=== PATIENT | female | born 1990 | race Caucasian/White ===

== ENCOUNTER 2017-12-08 20:49 | Emergency (ER) | payer BC ==
--- NOTE | 2017-12-08 21:57 | EDM.PDOC ---
ED HPI GENERAL MEDICAL PROBLEM - General Chief Complaint: Bite:Animal, Insect Stated Complaint: INSECT BITE LT ANKLE Time Seen by Provider: 12/08/17 21:53 Source of Information: Reports: Patient History Limitations: Reports: No Limitations - History of Present Illness INITIAL COMMENTS - FREE TEXT/NARRATIVE: HISTORY AND PHYSICAL: []27-year-old female presenting with a insect bite to her left lower leg/ankle History of Present Illness: []She reports multiple allergies. She is 31 weeks Review of Systems: As per history of present illness and below otherwise all systems reviewed and negative. Past medical history: As per history of present illness and as reviewed below otherwise noncontributory. Surgical history: As per history of present illness and as reviewed below otherwise noncontributory. Social history: No reported history of drug or alcohol abuse. Family history: As per history of present illness and as reviewed below otherwise noncontributory. Physical exam: Oriented female answering questions appropriately in full sentences without any shortness of breath she is nontoxic in appearance HEENT: Atraumatic, normocehpalic, pupils reactive, negative for conjunctival pallor or scleral icterus, mucous membranes moist, throat clear, neck supple, nontender, trachea midline. Lungs: Clear to auscultation, breath sounds equal bilaterally, chest non tender. Heart: S1S2, regular, negative for clicks, rubs, or JVD. Abdomen: Soft, nondistended, nontender. Negative for masses or hepatossplenmegaly. Negative for costovertebral tenderness. Pelvis: Stable nontender. Genitourinary: Deferred. Rectal: Deferred Extremities: Atraumatic, negative for cords or calf pain. Mild edema noted to the left lateral ankle erythema noted itching present Neurovascular unremarkable. Neuro: Awake, alert, oriented. Cranial nerves II through XII unremarkable. Cerebellum unremarkable. Motor and sensory unremarkable throughout. Exam nonfocal. Diagnostics: [] Therapeutics: [] Impression: []Insect bite Plan: []Discharged home Zyrtec [id number] Prednisone 20 mg daily times the next 3 days Over The counter cortisone cream when necessary Definitive disposition and diagnosis as appropriate pending reevaluation and review of above. 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 ED EXAM, ANIMAL BITE - Physical Exam Exam: See Below (see dictation) Course - Vital Signs Last Recorded V/S: Last Vital Signs Temp 36.6 C 12/08/17 20:49 Pulse 93 12/08/17 20:49 Resp 18 12/08/17 20:49 BP 110/64 12/08/17 20:49 Pulse Ox 97 12/08/17 20:49 Departure - Departure Time of Disposition: 21:55 Disposition: Home, Self-Care 01 Condition: Good Clinical Impression: Insect bite Qualifiers: Encounter type: initial encounter Qualified Code(s): W57.XXXA - Bitten or stung by nonvenomous insect and other nonvenomous arthropods, initial encounter - Discharge Information Instructions: Insect Bite, Adult, [id number], Preventing Mosquito-Borne Illnesses Referrals: Ellie Sheth MD [Primary Care Provider] - Additional Instructions: The following information is given to patients seen in the emergency department who are being discharged to home. This information is to outline your options for follow-up care. We provide all patients seen in our emergency department with a follow-up referral. The need for follow-up, as well as the timing and circumstances, are variable depending upon the specifics of your emergency department visit. If you don't have a primary care physician on staff, we will provide you with a referral. We always advise you to contact your personal physician following an emergency department visit to inform them of the circumstance of the visit and for follow-up with them and/or the need for any referrals to a consulting specialist. The emergency department will also refer you to a specialist when appropriate. This referral assures that you have the opportunity for followup care with a specialist. All of these measure are taken in an effort to provide you with optimal care, which includes your followup. Under all circumstances we always encourage you to contact your private physician who remains a resource for coordinating your care. When calling for followup care, please make the office aware that this follow-up is from your recent emergency room visit. If for any reason you are refused follow-up, please contact the [facility] emergency department at and asked to speak to the emergency department charge nurse. You have a reaction to mosquito bite Prednisone 20 mg daily for 3 days Zyrtec [id number] allergy medicine daily Follow-up with your CORPORATE FITNESS PROGRAM COORDINATOR
[2017-12-08 22:20] VITALS: BP 106/68
== END 2017-12-08 22:15 | disposition home or self-care (01) ==
LOC: MW.ED 20:49
DX: O9A.213 Injury, poisoning and certain other consequences of external causes complicating pregnancy, third trimester (principal); S80.862A Insect bite (nonvenomous), left lower leg, initial encounter; W57.XXXA Bitten or stung by nonvenomous insect and other nonvenomous arthropods, initial encounter; Z3A.31 31 weeks gestation of pregnancy
CPT/HCPCS: 99281

== ENCOUNTER 2018-02-07 01:54 | Inpatient (IN) | payer BC ==
[2018-02-07] MEDS ORDERED: Water For Irrigation,Sterile 1,000 ML Container IRR PRN (02:20)
[2018-02-07] MEDS ORDERED: Terbutaline 1 MG/ML SDV SUBCUT PRN (02:20)
[2018-02-07] MEDS ORDERED: Sodium Chloride 0.9% 2.5 ML Syringe FLUSH PRN (02:20)
[2018-02-07] MEDS ORDERED: Misoprostol 200 MCG Tab PO PRN (02:20)
[2018-02-07] MEDS ORDERED: Nalbuphine 10 MG/1 ML Vial IVPUSH PRN (02:20)
[2018-02-07] MEDS ORDERED: Tranexamic Acid 1,000 MG in Sodium Chloride 0.9% 100 ML IV PRN (02:20)
[2018-02-07] MEDS ORDERED: Methylergonovine 0.2 MG/1 ML Amp IM PRN ×2 (02:20→08:56)
[2018-02-07] MEDS ORDERED: Lidocaine 1% 50 ML MDV INJECT PRN (02:20)
[2018-02-07] MEDS ORDERED: Butorphanol 1 MG/ML SDV IVPUSH PRN (02:20)
[2018-02-07] MEDS ORDERED: Carboprost Tromethamine 250 MCG/1 ML Amp IM PRN (02:20)
[2018-02-07] MEDS ORDERED: Misoprostol 25 MCG (1/4 of 100 MCG) Tab VAG PRN ×2 (02:20)
[2018-02-07] MEDS ORDERED: Sodium Chloride 0.9% 10 ML Syringe FLUSH PRN (02:20)
[2018-02-07] MEDS ORDERED: Oxytocin/0.9 % Sodium Chloride 30 UNIT/500 ML BAG IV SCH ×2 (02:30)
[2018-02-07] MEDS: Lactated Ringers 1,000 ML IV SCH ×2 (02:55→03:46)
[2018-02-07] MEDS ORDERED: Witch Hazel Medicated Pads 40/Jar TOP PRN (08:56)
[2018-02-07] MEDS ORDERED: Ibuprofen 800 MG Tab PO PRN (08:56)
[2018-02-07] MEDS ORDERED: Docusate Sodium 100 MG Cap PO PRN (08:56)
[2018-02-07] MEDS ORDERED: Ibuprofen 400 MG Tab PO PRN (08:56)
[2018-02-07] MEDS ORDERED: Bisacodyl 10 MG Supp RECTAL PRN (08:56)
[2018-02-07] MEDS ORDERED: oxyCODONE 5 MG Tab PO PRN (08:56)
[2018-02-07] MEDS ORDERED: Lanolin 100% Cream 7 GM Tube TOP PRN (08:56)
[2018-02-07] MEDS ORDERED: Acetaminophen 500 MG Tab PO PRN (08:56)
--- NOTE | 2018-02-07 08:56 | PCM.DEL ---
L & D Note - General Info Date of Service: 02/07/18 Mother's Due Date: 02/06/18 - Delivery Note Labor: Augmented by Oxytocin Delivery Outcome: Livebirth Infant Delivery Method: Spontaneous Vaginal Delivery-Single Presentation: Right Occiput Anterior (MAGGY) Nuchal Cord: None Anesthesia Type: None Episiotomy Type: None Laceration: None Placenta: Intact, Spontaneous Cord: 3 Vessels Estimated Blood Loss: 200 Resuscitation Needed: No Score 1 min: 9 Score 5 min: 9 Second Stage Interventions: Reports: Pushing Involuntarily Delivery Comments (Free Text/Narrative):: Scheduled for induction today, but presented at 3 am with SROM not in active labor, pitocin augmentation initiated. - General Info Date of Service: 02/07/18 - Patient Data Weight - Most Recent: 109.769 kg I&O - Last 24 Hours: Intake & Output 02/06/18 02/07/18 02/07/18 22:59 06:59 14:59 Intake Total 1000 Balance 1000 Lab Results Last 24 Hours: Laboratory Results - last 24 hr 02/07/18 02/07/18 Range/Units 02:40 02:40 WBC 10.18 (4.0-11.0) K/uL RBC 3.82 L (4.30-5.90) M/uL Hgb 11.3 L (12.0-16.0) g/dL Hct 34.3 L (36.0-46.0) % MCV 89.8 (80.0-98.0) fL MCH 29.6 (27.0-32.0) pg MCHC 32.9 (31.0-37.0) g/dL RDW Std Deviation 46.2 (28.0-62.0) fl RDW Coeff of Shanique 14 (11.0-15.0) % Plt Count 255 (150-400) K/uL MPV 9.40 (7.40-12.00) fL Nucleated RBC % 0.0 /100WBC Nucleated RBCs # 0 K/uL Blood Type A POSITIVE Antibody Screen NEGATIVE Med Orders - Current: Current Medications Butorphanol Tartrate (Stadol) 1 mg IVPUSH Q1H PRN PRN Reason: Pain Carboprost Tromethamine (Hemabate Ds) 250 mcg IM ASDIRECTED PRN PRN Reason: Post Hemorrhage Lactated Ringer's (Ringers, Lactated) 1,000 mls @ 150 mls/hr IV ASDIRECTED KAREN Last Admin: 02/07/18 03:46 Dose: 100 mls/hr Oxytocin/Sodium Chloride (Oxytocin 30 Unit/500 Ml-Ns) 30 unit in 500 mls @ 999 mls/hr IV TITRATE KAREN Oxytocin/Sodium Chloride (Oxytocin 30 Unit/500 Ml-Ns) 30 unit in 500 mls @ 2 mls/hr IV TITRATE KAREN; Protocol Last Titration: 02/07/18 04:10 Dose: 6 munits/min, 6 mls/hr Tranexamic Acid 1,000 mg/ (Sodium Chloride) 110 mls @ 660 mls/hr IV ONETIME PRN PRN Reason: Bleeding Lidocaine HCl (Xylocaine 1%) 50 ml INJECT ONETIME PRN PRN Reason: Laceration repair Methylergonovine Maleate (Methergine) 0.2 mg IM ASDIRECTED PRN PRN Reason: Post Hemorrhage Misoprostol (Cytotec) 200 mcg PO ONETIME PRN PRN Reason: Post Hemorrhage Misoprostol (Cytotec) 25 mcg VAG ONETIME PRN PRN Reason: Cervical Ripening Misoprostol (Cytotec) 25 mcg VAG Q4H PRN PRN Reason: Cervical Ripening Nalbuphine HCl (Nubain) 10 mg IVPUSH Q1H PRN PRN Reason: Pain (severe 7-10) Last Admin: 02/07/18 05:06 Dose: 10 mg Sodium Chloride (Saline Flush) 10 ml FLUSH ASDIRECTED PRN PRN Reason: Keep Vein Open Sodium Chloride (Saline Flush) 2.5 ml FLUSH ASDIRECTED PRN PRN Reason: Keep Vein Open Sterile Water (Sterile Water For Irrigation) 1,000 ml IRR ASDIRECTED PRN PRN Reason: delivery Terbutaline Sulfate (Brethine) 0.25 mg SUBCUT ASDIRECTED PRN PRN Reason: Tacysystole - Problem List & Annotations (1) Vaginal delivery SNOMED Code(s): 326166889 Code(s): O80 - ENCOUNTER FOR FULL-TERM UNCOMPLICATED DELIVERY Status: Acute Current Visit: No - Problem List Review Problem List Initiated/Reviewed/Updated: Yes
[2018-02-07] MEDS ORDERED: Prenatal Multivitamin and Multimineral with Iron Tab PO SCH (09:00)
[2018-02-07] MEDS ORDERED: Ranitidine 15 MG/ML Syrup 10 ML UD Cup PO SCH (09:00)
--- NOTE | 2018-02-07 15:47 | OR ---
SURGEON: Marjan Vidal M.D. DATE OF PROCEDURE: 02/07/2018 PREOPERATIVE DIAGNOSES: 1. 40 and 1/7 week intrauterine . 2. Spontaneous rupture of membranes with augmentation of labor. POSTOPERATIVE DIAGNOSES: 1. 40 and 1/7 week intrauterine . 2. Spontaneous rupture of membranes with augmentation of labor. PROCEDURES: Pitocin augmentation of labor, term spontaneous vaginal delivery. ANESTHESIA: None. ESTIMATED BLOOD LOSS: Less than 200 mL. FINDINGS: Live born male, scores 9 and 9, weighing 3770 g. Placenta spontaneous, Schultze intact with 3 vessels, perineum intact. BRIEF HISTORY: This is a 27-year-old female, she is G4, P3. She presented at approximately 2:00 a.m. with spontaneous rupture of membranes. She was scheduled for induction at 5:00 a.m., and therefore was started on Pitocin, and had category 1 heart tones and she progressed to complete by 8:00 a.m. DESCRIPTION OF PROCEDURE: With the patient in dorsal lithotomy position, the patient pushed over one contraction to 5+ station at which time, the head was delivered spontaneously and atraumatically over the perineum with support with subsequent delivery of the 's shoulders and body without any difficulty. The was bulb suctioned by nose and mouth. The cord was clamped x2 and cut, and the infant was handed to the mother in the presence of the nurse attending delivery. The was a liveborn male, scores 9 and 9, weighing 3770 g. Cord blood was collected for cord ABGs as well as routine cord blood sampling. Pitocin was initiated after delivery of the infant to assist with delivery of the placenta, which was delivered spontaneously. Schultze intact with 3 vessels. Upon inspection of the pelvis and perineum, there were no periurethral, vaginal sidewall, cervical, rectal, or perineal lacerations. EBL was less than 200 mL. There were no known complications. Mother and baby are in LDRP in good condition. NAOMY / NAMITA /[id number]
[2018-02-07] MEDS: Acetaminophen 500 MG Tab PO PRN (17:00)
[2018-02-07] MEDS: Loratadine 10 MG Tab PO SCH ×2 (21:44→21:47)
[2018-02-08] MEDS: Acetaminophen 500 MG Tab PO PRN (00:42)
[2018-02-08 08:08] VITALS: BP 125/69
--- NOTE | 2018-02-08 11:14 | PCM.PNPP ---
- General Info Date of Service: 02/08/18 Functional Status: Reports: Pain Controlled, Tolerating Diet, Ambulating, Urinating - Review of Systems General: Denies: Fever, Chills HEENT: Denies: Headaches Pulmonary: Denies: Shortness of Breath, Pleuritic Chest Pain Cardiovascular: Denies: Chest Pain, Palpitations Gastrointestinal: Denies: Abdominal Pain Genitourinary: Denies: Dysuria, Incontinence - General Info Date of Service: 02/08/18 - Patient Data Vital Signs - Most Recent: Last Vital Signs Temp 36.8 C 02/08/18 07:40 Pulse 88 02/08/18 07:40 Resp 16 02/08/18 07:40 BP 125/69 02/08/18 07:40 Pulse Ox 96 02/08/18 07:40 Weight - Most Recent: 242 lb Lab Results - Last 24 Hours: Laboratory Results - last 24 hr 02/08/18 Range/Units 05:45 Hgb 11.1 L (12.0-16.0) g/dL Hct 33.6 L (36.0-46.0) % Med Orders - Current: Current Medications Acetaminophen (Tylenol Extra Strength) 500 mg PO Q4H PRN PRN Reason: Pain Last Admin: 02/08/18 00:42 Dose: 500 mg Acetaminophen (Tylenol Extra Strength) 1,000 mg PO Q4H PRN PRN Reason: Pain Bisacodyl (Dulcolax) 10 mg RECTAL ONETIME PRN PRN Reason: Constipation Docusate Sodium (Colace) 100 mg PO BID PRN PRN Reason: Constipation Emollient Ointment (Lansinoh Hpa) 0 gm TOP ASDIRECTED PRN PRN Reason: Sore Nipples Ibuprofen (Motrin) 400 mg PO Q4H PRN PRN Reason: Pain Ibuprofen (Motrin) 800 mg PO Q6H PRN PRN Reason: Pain Loratadine (Claritin) 10 mg PO BID [facility] Last Admin: 02/07/18 21:47 Dose: Not Given Methylergonovine Maleate (Methergine) 0.2 mg IM ONETIME PRN PRN Reason: Excessive Vaginal Bleeding Oxycodone HCl (Oxycodone) 5 mg PO Q2H PRN PRN Reason: Pain Prenat Multivit/Kinney/Iron/Folic Ac ( Mtr) 1 each PO DAILY [facility] Last Admin: 02/07/18 21:45 Dose: Not Given Ranitidine HCl (Zantac) 150 mg PO DAILY [facility] Last Admin: 02/07/18 21:45 Dose: Not Given Елена Meyerel (Tucks) 1 pad TOP ASDIRECTED PRN PRN Reason: comfort care Discontinued Medications Butorphanol Tartrate (Stadol) 1 mg IVPUSH Q1H PRN PRN Reason: Pain Carboprost Tromethamine (Hemabate Ds) 250 mcg IM ASDIRECTED PRN PRN Reason: Post Hemorrhage Lactated Ringer's (Ringers, Lactated) 1,000 mls @ 150 mls/hr IV ASDIRECTED KAREN Last Admin: 02/07/18 03:46 Dose: 100 mls/hr Oxytocin/Sodium Chloride (Oxytocin 30 Unit/500 Ml-Ns) 30 unit in 500 mls @ 999 mls/hr IV TITRATE KAREN Oxytocin/Sodium Chloride (Oxytocin 30 Unit/500 Ml-Ns) 30 unit in 500 mls @ 2 mls/hr IV TITRATE [facility]; Protocol Last Titration: 02/07/18 08:11 Dose: 500 munits/min, 500 mls/hr Tranexamic Acid 1,000 mg/ (Sodium Chloride) 110 mls @ 660 mls/hr IV ONETIME PRN PRN Reason: Bleeding Lidocaine HCl (Xylocaine 1%) 50 ml INJECT ONETIME PRN PRN Reason: Laceration repair Methylergonovine Maleate (Methergine) 0.2 mg IM ASDIRECTED PRN PRN Reason: Post Hemorrhage Misoprostol (Cytotec) 200 mcg PO ONETIME PRN PRN Reason: Post Hemorrhage Misoprostol (Cytotec) 25 mcg VAG ONETIME PRN PRN Reason: Cervical Ripening Misoprostol (Cytotec) 25 mcg VAG Q4H PRN PRN Reason: Cervical Ripening Nalbuphine HCl (Nubain) 10 mg IVPUSH Q1H PRN PRN Reason: Pain (severe 7-10) Last Admin: 02/07/18 05:06 Dose: 10 mg Sodium Chloride (Saline Flush) 10 ml FLUSH ASDIRECTED PRN PRN Reason: Keep Vein Open Sodium Chloride (Saline Flush) 2.5 ml FLUSH ASDIRECTED PRN PRN Reason: Keep Vein Open Sterile Water (Sterile Water For Irrigation) 1,000 ml IRR ASDIRECTED PRN PRN Reason: delivery Terbutaline Sulfate (Brethine) 0.25 mg SUBCUT ASDIRECTED PRN PRN Reason: Tacysystole - Interaction Disposition, : [place] in Room with Family Infant Interaction: Holding Feeding: Breastfed Infant; Nursed Well, Continues to Breastfeed Support Person: , Mother - Recovery Exam Fundal Tone: Firm Fundal Level: At Umbilicus Fundal Placement: Midline Lochia Amount: Small Lochia Color: Rubra/Red Perineum Description: Intact, Minimal Bruising/Swelling Episiotomy/Laceration: None Bladder Status: Nonpalpable Urinary Elimination: Voided - Exam General: Alert, Oriented Neck: Supple Lungs: Clear to Auscultation, Normal Respiratory Effort Cardiovascular: Regular Rate, Regular Rhythm GI/Abdominal Exam: Soft, Non-Tender Extremities: Non-Tender, Pedal Edema Psy/Mental Status: Alert, Normal Affect, Normal Mood - Problem List & Annotations (1) Vaginal delivery SNOMED Code(s): 309300143 Code(s): O80 - ENCOUNTER FOR FULL-TERM UNCOMPLICATED DELIVERY Status: Acute Current Visit: No - Problem List Review Problem List Initiated/Reviewed/Updated: Yes - Assessment Assessment:: PPD31, s/p , stable and afebrile - Plan Plan:: Discharge instructions reviewed Bleeding and infection precautions reviewed Nothing in the vagina for 6 weeks Continue PNV May use OTC pain meds PRN S/S of blues vs depression reviewed, stressed to call with any concerns Follow up in 6 weeks at [facility]
== END 2018-02-08 12:33 | disposition home or self-care (01) | DRG 560 ==
LOC: MW.OBCHECK 01:54 → MW.OB 01:57 → MW.OBCHECK 02:21 → OBSVTOIN 08:09
PROVIDERS: ADMIT Obstetrics & Gynecology; ATTEND Obstetrics & Gynecology
PROC: 10E0XZZ Delivery of Products of Conception, External Approach (ICD-10-PCS; principal; 2018-02-07)
PROC: 3E033VJ Introduction of Other Hormone into Peripheral Vein, Percutaneous Approach (ICD-10-PCS; 2018-02-07)
DX: O42.02 Full-term premature rupture of membranes, onset of labor within 24 hours of rupture (principal); Z3A.40 40 weeks gestation of pregnancy; Z37.0 Single live birth
CPT/HCPCS: 36415; 59025; 59409; 82803; 85014; 85018; 85027; 86850; 86900; 86901; A9270-GY; J2300; J2590; J7120

== ENCOUNTER 2020-04-06 07:14 | Inpatient (IN) | payer BC ==
[2020-04-06] MEDS ORDERED: Water For Irrigation,Sterile 1,000 ML Container IRR PRN (19:45)
[2020-04-06] MEDS ORDERED: Lactated Ringers 1,000 ML IV SCH (19:45)
[2020-04-06] MEDS ORDERED: Lidocaine 1% 50 ML MDV INJECT PRN (19:45)
[2020-04-06] MEDS ORDERED: Nalbuphine 10 MG/1 ML Vial IVPUSH PRN (19:45)
[2020-04-06] MEDS ORDERED: Misoprostol 25 MCG (1/4 of 100 MCG) Tab VAG PRN ×2 (19:45)
[2020-04-06] MEDS ORDERED: Methylergonovine 0.2 MG/1 ML Amp IM PRN (19:45)
[2020-04-06] MEDS ORDERED: Carboprost Tromethamine 250 MCG/1 ML Amp IM PRN (19:45)
[2020-04-06] MEDS ORDERED: Terbutaline 1 MG/ML SDV SUBCUT PRN (19:45)
[2020-04-06] MEDS ORDERED: Tranexamic Acid 1,000 MG in Sodium Chloride 0.9% 100 ML IV PRN (19:45)
[2020-04-06] MEDS ORDERED: Sodium Chloride 0.9% 10 ML Syringe FLUSH PRN (19:45)
[2020-04-06] MEDS ORDERED: Misoprostol 200 MCG Tab PO PRN (19:45)
[2020-04-06] MEDS ORDERED: Sodium Chloride 0.9% 2.5 ML Syringe FLUSH PRN (19:45)
[2020-04-06] MEDS ORDERED: Sodium Chloride 0.9% 10 ML SDV IV PRN (19:45)
[2020-04-06] MEDS ORDERED: Butorphanol 1 MG/ML SDV IVPUSH PRN (19:45)
[2020-04-06] MEDS ORDERED: Oxytocin/0.9 % Sodium Chloride 30 UNIT/500 ML BAG IV SCH ×2 (19:45)
--- NOTE | 2020-04-06 21:14 | PCM.LDHP ---
L&D History of Present Illness - General Date of Service: 04/06/20 Admit Problem/Dx: Patient Status Order with Admit Dx/Problem 04/06/20 19:45 Patient Status [ADT] Routine Admission Diagnosis/Problem Admission Diagnosis/Problem 04/06/20 21:11 presenting to labor and delivery for elective induction of labor at 40 2/7 weeks (LM: 04/04/20); A+, Rubella immune, GBS negative Source of Information: Patient History Limitations: Reports: No Limitations - Related Data Allergies/Adverse Reactions: Allergies Allergy/AdvReac Type Severity Reaction Status Date / Time camphor* [From Biofreeze] Allergy Hives Verified 02/07/18 02:20 menthol [From Biofreeze] Allergy Hives Verified 02/07/18 02:20 pollen extracts Allergy Sneezing Verified 02/07/18 02:20 streptomycin Allergy Vomiting Verified 02/07/18 03:17 Home Medications: Home Meds #103/Iron Fumarate/Fa [ ] 1 tab PO DAILY 12/08/17 [History] Loratadine [Claritin] 1 tab PO BID 01/14/18 [History] raNITIdine HCL [Zantac 75] 1 tab PO 01/14/18 [History] Past Medical History - Past Health History Medical/Surgical History: Denies Medical/Surgical History HEENT History: Reports: None Cardiovascular History: Reports: None Respiratory History: Reports: None 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 Genitourinary History: Reports: STD Other Genitourinary History: HPV 4 years ago 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, - Infectious Disease History Infectious Disease History: Reports: Chicken Pox, Measles, Mumps, Rubella - Past Surgical History HEENT Surgical History: Reports: None Cardiovascular Surgical History: Reports: None Respiratory Surgical History: Reports: None Female Surgical History: Reports: None Other Female Surgeries/Procedures: medical diagnosis of edometrosis Social & Family History - Family History Family Medical History: Noncontributory H&P Review of Systems - Review of Systems: Review Of Systems: See Below General: Reports: No Symptoms HEENT: Reports: No Symptoms Pulmonary: Reports: No Symptoms Cardiovascular: Reports: No Symptoms Gastrointestinal: Reports: No Symptoms Genitourinary: Reports: No Symptoms Musculoskeletal: Reports: No Symptoms Skin: Reports: No Symptoms Psychiatric: Reports: No Symptoms Neurological: Reports: No Symptoms Hematologic/Lymphatic: Reports: No Symptoms Immunologic: Reports: No Symptoms L&D Exam - Exam Exam: See Below - Vital Signs Weight: 245 lb - OB Specific Movement: Active Heart Tones: Present Heart Rate (FHR) Variability: Moderate (6-25 bmp) - Joe Score Joe Score Cervix Position: Midposition Joe Score Consistency: Soft Joe Score Effacement: 31-50% Joe Score Dilation: 1-2 cm Joe Score 's Station: -1 ,0 Joe Score Total: 7 - Exam General: Alert, Oriented Lungs: Normal Respiratory Effort Cardiovascular: Regular Rate, Regular Rhythm GI/Abdominal Exam: Soft, Non-Tender Rectal Exam: Deferred Genitourinary: Deferred Back Exam: Normal Inspection, Full Range of Motion Extremities: Normal Inspection, Normal Range of Motion, Non-Tender, Normal Capillary Refill Skin: Warm, Dry, Intact Neurological: Strength Equal Bilateral, Normal Speech, Normal Tone, Sensation Intact Psychiatric: Alert, Normal Affect, Normal Mood - Patient Data Lab Results Last 24 hrs: Laboratory Results - last 24 hr 04/06/20 Range/Units 20:20 WBC 8.91 (4.0-11.0) K/uL RBC 3.86 L (4.30-5.90) M/uL Hgb 11.0 L (12.0-16.0) g/dL Hct 34.4 L (36.0-46.0) % MCV 89.1 (80.0-98.0) fL MCH 28.5 (27.0-32.0) pg MCHC 32.0 (31.0-37.0) g/dL RDW Std Deviation 47.4 (28.0-62.0) fl RDW Coeff of Shanique 15 (11.0-15.0) % Plt Count 288 (150-400) K/uL MPV 9.80 (7.40-12.00) fL Nucleated RBC % 0.0 /100WBC Nucleated RBCs # 0 K/uL Result Diagrams: 04/06/20 20:20 - Problem List (1) Supervision of normal IUP (intrauterine ) in multigravida SNOMED Code(s): 189973670, 245790031, 009618515 ICD Code: Z34.80 - ENCOUNTER FOR SUPRVSN OF NORMAL , UNSP TRIMESTER Status: Acute Priority: High Current Visit: Yes Qualifiers: Trimester: third trimester Qualified Code(s): Z34.83 - Encounter for supervision of other normal , third trimester Problem List Initiated/Reviewed/Updated: Yes Orders Last 24hrs: Active Orders 24 hr Category Date Time Status Patient Status [ADT] Routine ADT 04/06/20 19:45 Active Bedrest Bathroom Privileges [RC] ASDIRECTED Care 04/06/20 19:45 Active Communication Order [RC] ASDIRECTED Care 04/06/20 19:45 Active Communication Order [RC] ASDIRECTED Care 04/06/20 19:45 Active Communication Order [RC] ASDIRECTED Care 04/06/20 19:45 Active Heart Tones [RC] CONTINUOUS Care 04/06/20 19:45 Active Non Stress Test [RC] PER UNIT ROUTINE Care 04/06/20 19:45 Active May Shower [RC] ASDIRECTED Care 04/06/20 19:45 Active Notify Provider [RC] PRN Care 04/06/20 19:45 Active Notify Provider [RC] PRN Care 04/06/20 19:45 Active Notify Provider [RC] PRN Care 04/06/20 19:45 Active Notify Provider [RC] STAT Care 04/06/20 19:45 Active Oxygen Therapy [RC] ASDIRECTED Care 04/06/20 19:45 Active Up ad Merna [RC] ASDIRECTED Care 04/06/20 19:45 Active Vaginal Exam [RC] PRN Care 04/06/20 19:45 Active Vaginal Exam [RC] PRN Care 04/06/20 19:45 Active Vital Signs [RC] PER UNIT ROUTINE Care 04/06/20 19:45 Active Vital Signs [RC] PER UNIT ROUTINE Care 04/06/20 19:45 Active CORONAVIRUS COVID-19 [place] [[facility]] Urgent Lab 04/06/20 20:20 Received RPR (SYPHILIS SERO) W/ RFLX [REF] Routine Lab 04/06/20 20:20 Received TYPE AND SCREEN [BBK] Routine Lab 04/06/20 20:20 Received Butorphanol [Stadol] Med 04/06/20 19:45 Active 1 mg IVPUSH Q1H PRN Carboprost Tromethamine [Hemabate DS] Med 04/06/20 19:45 Active 250 mcg IM ASDIRECTED PRN Lactated Ringers [Ringers, Lactated] 1,000 ml Med 04/06/20 19:45 Active IV ASDIRECTED Lidocaine 1% [Xylocaine 1%] Med 04/06/20 19:45 Active 50 ml INJECT ONETIME PRN Methylergonovine [Methergine] Med 04/06/20 19:45 Active 0.2 mg IM ASDIRECTED PRN Nalbuphine [Nubain] Med 04/06/20 19:45 Active 10 mg IVPUSH Q1H PRN Oxytocin/0.9 % Sodium Chloride [Oxytocin 30 Unit/500 ML Med 04/06/20 19:45 Active -NS] 30 unit in 500 ml IV TITRATE Oxytocin/0.9 % Sodium Chloride [Oxytocin 30 Unit/500 ML Med 04/06/20 19:45 Active -NS] 30 unit in 500 ml IV TITRATE Sodium Chloride 0.9% [Normal Saline] Med 04/06/20 19:45 Active 10 ml IV ASDIRECTED PRN Sodium Chloride 0.9% [Saline Flush] Med 04/06/20 19:45 Active 10 ml FLUSH ASDIRECTED PRN Sodium Chloride 0.9% [Saline Flush] Med 04/06/20 19:45 Active 2.5 ml FLUSH ASDIRECTED PRN Terbutaline [Brethine] Med 04/06/20 19:45 Active 0.25 mg SUBCUT ASDIRECTED PRN Tranexamic Acid [Cyklokapron] 1,000 mg Med 04/06/20 19:45 Active Sodium Chloride 0.9% [Normal Saline] 100 ml IV ONETIME Water For Irrigation,Sterile [Sterile Water for Med 04/06/20 19:45 Active Irrigation] 1,000 ml IRR ASDIRECTED PRN miSOPROStoL [Cytotec] Med 04/06/20 19:45 Active 200 mcg PO ONETIME PRN miSOPROStoL [Cytotec] Med 04/06/20 19:45 Active 25 mcg VAG ONETIME PRN miSOPROStoL [Cytotec] Med 04/06/20 19:45 Active 25 mcg VAG Q4H PRN Scalp Electrode [WOMSER] Per Unit Routine Oth 04/06/20 19:45 Ordered Medication Administration Instruction [OM.PC] Q3H Oth 04/06/20 19:45 Ordered Peripheral IV Insertion Adult [OM.PC] Routine Oth 04/06/20 19:45 Ordered Resuscitation Status Routine Resus Stat 04/06/20 19:45 Ordered Medication Orders Butorphanol Tartrate (Stadol) 1 mg IVPUSH Q1H PRN PRN Reason: Pain Carboprost Tromethamine (Hemabate Ds) 250 mcg IM ASDIRECTED PRN PRN Reason: Post Hemorrhage Oxytocin/Sodium Chloride (Oxytocin 30 Unit/500 Ml-Ns) 30 unit in 500 mls @ 999 mls/hr IV TITRATE KAREN Tranexamic Acid 1,000 mg/ (Sodium Chloride) 110 mls @ 660 mls/hr IV ONETIME PRN PRN Reason: Bleeding Oxytocin/Sodium Chloride (Oxytocin 30 Unit/500 Ml-Ns) 30 unit in 500 mls @ 2 mls/hr IV TITRATE KAREN; Protocol Lactated Ringer's (Ringers, Lactated) 1,000 mls @ 150 mls/hr IV ASDIRECTED KAREN Lidocaine HCl (Xylocaine 1%) 50 ml INJECT ONETIME PRN PRN Reason: Laceration repair Methylergonovine Maleate (Methergine) 0.2 mg IM ASDIRECTED PRN PRN Reason: Post Hemorrhage Misoprostol (Cytotec) 200 mcg PO ONETIME PRN PRN Reason: Post Hemorrhage Misoprostol (Cytotec) 25 mcg VAG ONETIME PRN PRN Reason: Cervical Ripening Misoprostol (Cytotec) 25 mcg VAG Q4H PRN PRN Reason: Cervical Ripening Last Admin: 04/06/20 20:32 Dose: 25 mcg Documented by: MACI Nalbuphine HCl (Nubain) 10 mg IVPUSH Q1H PRN PRN Reason: Pain (severe 7-10) Sodium Chloride (Saline Flush) 10 ml FLUSH ASDIRECTED PRN PRN Reason: Keep Vein Open Sodium Chloride (Saline Flush) 2.5 ml FLUSH ASDIRECTED PRN PRN Reason: Keep Vein Open Sodium Chloride (Normal Saline) 10 ml IV ASDIRECTED PRN PRN Reason: IV Use Sterile Water (Sterile Water For Irrigation) 1,000 ml IRR ASDIRECTED PRN PRN Reason: delivery Terbutaline Sulfate (Brethine) 0.25 mg SUBCUT ASDIRECTED PRN PRN Reason: Tacysystole Assessment/Plan Comment:: Admit A: presenting to labor and delivery for elective induction of labor at 40 2/7 weeks (LM: 04/04/20); A+, Rubella immune, GBS negative P: Anticipate ; epidural PRN; cytotect to pitocin; Dr. Calvin updated.
[2020-04-06] MEDS ORDERED: Misoprostol 25 MCG (1/4 of 100 MCG) Tab PO PRN (23:51)
[2020-04-07] MEDS ORDERED: Misoprostol 25 MCG (1/4 of 100 MCG) Tab VAG PRN (00:09)
[2020-04-07] MEDS ORDERED: Misoprostol 50 MCG (1/2 of 100 MCG) Tab VAG PRN (00:09)
[2020-04-07] MEDS ORDERED: Bisacodyl 10 MG Supp RECTAL PRN (07:32)
[2020-04-07] MEDS ORDERED: Witch Hazel Medicated Pads 40/Jar TOP PRN (07:32)
[2020-04-07] MEDS ORDERED: Acetaminophen 500 MG Tab PO PRN ×2 (07:32)
[2020-04-07] MEDS ORDERED: Lanolin 100% Cream 7 GM Tube TOP PRN (07:32)
[2020-04-07] MEDS ORDERED: Benzocaine/Menthol 20%-0.5% Spray 78 GM Cannister TOP PRN (07:32)
[2020-04-07] MEDS ORDERED: Ibuprofen 400 MG Tab PO PRN (07:32)
[2020-04-07] MEDS ORDERED: Docusate Sodium 100 MG Cap PO PRN (07:32)
[2020-04-07] MEDS ORDERED: oxyCODONE 5 MG Tab PO PRN (07:32)
--- NOTE | 2020-04-07 07:32 | PCM.DEL ---
L & D Note - General Info Date of Service: 04/07/20 Mother's Due Date: 04/04/20 - Delivery Note Cervical Ripening Method: Misoprostil Delivery Outcome: Livebirth Delivery Method: Spontaneous Vaginal Delivery-Single Presentation: Vertex Nuchal Cord: Present (x1), Reduced Anesthesia Type: None Episiotomy Type: None Laceration: None Cord: 3 Vessels Estimated Blood Loss: 150 Resuscitation Needed: No Score 1 min: 8 Score 5 min: 9 Second Stage Interventions: Reports: Other (see below) (Nurse delivered baby adeline payne this provider was in route from nurse station.) Delivery Comments (Free Text/Narrative):: viable male; progressed quickly from 8-9cm and an anterior lip to complete and ; RN delivered as this provider was headed from the nurse station; nuchal x1, reduced; baby to mom's abdomen for assessment; APGARs 8/9; weight pending; placenta delivered grossly intact, townsend, 3VC; EBL 150 mL; perineum intact; pitocin to IVF; mom and baby left in stable condition with nurse at bedside for assessment. - General Info Date of Service: 04/07/20 Admission Dx/Problem (Free Text): Patient Status Order with Admit Dx/Problem 04/06/20 19:45 Patient Status [ADT] Routine Admission Diagnosis/Problem Admission Diagnosis/Problem 04/06/20 21:11 presenting to labor and delivery for elective induction of labor at 40 2/7 weeks (LM: 04/04/20); A+, Rubella immune, GBS negative Functional Status: Reports: Pain Controlled - Review of Systems General: Reports: No Symptoms HEENT: Reports: No Symptoms Pulmonary: Reports: No Symptoms Cardiovascular: Reports: No Symptoms Gastrointestinal: Reports: No Symptoms Genitourinary: Reports: No Symptoms Musculoskeletal: Reports: No Symptoms Skin: Reports: No Symptoms Neurological: Reports: No Symptoms Psychiatric: Reports: No Symptoms - Patient Data Weight - Most Recent: 245 lb Lab Results Last 24 Hours: Laboratory Results - last 24 hr 04/06/20 04/06/20 04/06/20 Range/Units 20:20 20:20 20:20 WBC 8.91 (4.0-11.0) K/uL RBC 3.86 L (4.30-5.90) M/uL Hgb 11.0 L (12.0-16.0) g/dL Hct 34.4 L (36.0-46.0) % MCV 89.1 (80.0-98.0) fL MCH 28.5 (27.0-32.0) pg MCHC 32.0 (31.0-37.0) g/dL RDW Std Deviation 47.4 (28.0-62.0) fl RDW Coeff of Shanique 15 (11.0-15.0) % Plt Count 288 (150-400) K/uL MPV 9.80 (7.40-12.00) fL Nucleated RBC % 0.0 /100WBC Nucleated RBCs # 0 K/uL SARS-CoV-2 RNA ([place]) NEGATIVE (NEGATIVE) Blood Type A POSITIVE Antibody Screen NEGATIVE Med Orders - Current: Current Medications Butorphanol Tartrate (Stadol) 1 mg IVPUSH Q1H PRN PRN Reason: Pain Last Admin: 04/07/20 06:32 Dose: 1 mg Documented by: Carboprost Tromethamine (Hemabate Ds) 250 mcg IM ASDIRECTED PRN PRN Reason: Post Hemorrhage Oxytocin/Sodium Chloride (Oxytocin 30 Unit/500 Ml-Ns) 30 unit in 500 mls @ 999 mls/hr IV TITRATE KAREN Last Admin: 04/07/20 07:15 Dose: 999 mls/hr Documented by: Tranexamic Acid 1,000 mg/ (Sodium Chloride) 110 mls @ 660 mls/hr IV ONETIME PRN PRN Reason: Bleeding Oxytocin/Sodium Chloride (Oxytocin 30 Unit/500 Ml-Ns) 30 unit in 500 mls @ 2 mls/hr IV TITRATE KAREN; Protocol Last Titration: 04/07/20 07:15 Dose: 0 munits/min, 0 mls/hr Documented by: Lactated Ringer's (Ringers, Lactated) 1,000 mls @ 150 mls/hr IV ASDIRECTED KAREN Last Admin: 04/07/20 05:26 Dose: 150 mls/hr Documented by: Lidocaine HCl (Xylocaine 1%) 50 ml INJECT ONETIME PRN PRN Reason: Laceration repair Methylergonovine Maleate (Methergine) 0.2 mg IM ASDIRECTED PRN PRN Reason: Post Hemorrhage Misoprostol (Cytotec) 200 mcg PO ONETIME PRN PRN Reason: Post Hemorrhage Misoprostol (Cytotec) 25 mcg VAG ONETIME PRN PRN Reason: Cervical Ripening Misoprostol (Cytotec) 25 mcg PO Q4H PRN PRN Reason: Cervical Ripening Last Admin: 04/07/20 00:35 Dose: 25 mcg Documented by: Misoprostol (Cytotec) 25 mcg VAG Q4H PRN PRN Reason: Cervical Ripening Last Admin: 04/07/20 00:35 Dose: 25 mcg Documented by: Nalbuphine HCl (Nubain) 10 mg IVPUSH Q1H PRN PRN Reason: Pain (severe 7-10) Sodium Chloride (Saline Flush) 10 ml FLUSH ASDIRECTED PRN PRN Reason: Keep Vein Open Sodium Chloride (Saline Flush) 2.5 ml FLUSH ASDIRECTED PRN PRN Reason: Keep Vein Open Sodium Chloride (Normal Saline) 10 ml IV ASDIRECTED PRN PRN Reason: IV Use Sterile Water (Sterile Water For Irrigation) 1,000 ml IRR ASDIRECTED PRN PRN Reason: delivery Terbutaline Sulfate (Brethine) 0.25 mg SUBCUT ASDIRECTED PRN PRN Reason: Tacysystole Discontinued Medications Misoprostol (Cytotec) 25 mcg VAG Q4H PRN PRN Reason: Cervical Ripening Last Admin: 04/06/20 20:32 Dose: 25 mcg Documented by: - Exam General: Alert, Oriented Lungs: Normal Respiratory Effort GI/Abdominal Exam: Soft, Non-Tender (Female) Exam: Normal External Exam Back Exam: Normal Inspection, Full Range of Motion Extremities: Normal Inspection, Normal Range of Motion, Non-Tender, Normal Capillary Refill Skin: Warm, Dry, Intact Neurological: No New Focal Deficit, Normal Speech, Normal Tone, Sensation Intact Psy/Mental Status: Alert, Normal Affect, Normal Mood - Problem List & Annotations (1) Supervision of normal IUP (intrauterine ) in multigravida SNOMED Code(s): 502437005, 421608580, 991208594 Code(s): Z34.80 - ENCOUNTER FOR SUPRVSN OF NORMAL , UNSP TRIMESTER Status: Acute Priority: High Current Visit: Yes Qualifiers: Trimester: third trimester Qualified Code(s): Z34.83 - Encounter for supervision of other normal , third trimester (2) (spontaneous vaginal delivery) SNOMED Code(s): 356478119 Code(s): O80 - ENCOUNTER FOR FULL-TERM UNCOMPLICATED DELIVERY Status: Acute Priority: High Current Visit: Yes - Problem List Review Problem List Initiated/Reviewed/Updated: Yes - My Orders Last 24 Hours: My Active Orders 04/06/20 19:45 Patient Status [ADT] Routine Bedrest Bathroom Privileges [RC] ASDIRECTED Communication Order [RC] ASDIRECTED Communication Order [RC] ASDIRECTED Communication Order [RC] ASDIRECTED Heart Tones [RC] CONTINUOUS Non Stress Test [RC] PER UNIT ROUTINE May Shower [RC] ASDIRECTED Notify Provider [RC] PRN Notify Provider [RC] PRN Notify Provider [RC] PRN Notify Provider [RC] STAT Oxygen Therapy [RC] ASDIRECTED Up ad Merna [RC] ASDIRECTED Vaginal Exam [RC] PRN Vaginal Exam [RC] PRN Vital Signs [RC] PER UNIT ROUTINE Vital Signs [RC] PER UNIT ROUTINE Butorphanol [Stadol] 1 mg IVPUSH Q1H PRN Carboprost Tromethamine [Hemabate DS] 250 mcg IM ASDIRECTED PRN Lactated Ringers [Ringers, Lactated] 1,000 ml IV ASDIRECTED Lidocaine 1% [Xylocaine 1%] 50 ml INJECT ONETIME PRN Methylergonovine [Methergine] 0.2 mg IM ASDIRECTED PRN Nalbuphine [Nubain] 10 mg IVPUSH Q1H PRN Oxytocin/0.9 % Sodium Chloride [Oxytocin 30 Unit/500 ML-NS] 30 unit in 500 ml IV TITRATE Oxytocin/0.9 % Sodium Chloride [Oxytocin 30 Unit/500 ML-NS] 30 unit in 500 ml IV TITRATE Sodium Chloride 0.9% [Normal Saline] 10 ml IV ASDIRECTED PRN Sodium Chloride 0.9% [Saline Flush] 10 ml FLUSH ASDIRECTED PRN Sodium Chloride 0.9% [Saline Flush] 2.5 ml FLUSH ASDIRECTED PRN Terbutaline [Brethine] 0.25 mg SUBCUT ASDIRECTED PRN Tranexamic Acid [Cyklokapron] 1,000 mg Sodium Chloride 0.9% [Normal Saline] 100 ml IV ONETIME Water For Irrigation,Sterile [Sterile Water for Irrigation] 1,000 ml IRR ASDIRECTED PRN miSOPROStoL [Cytotec] 200 mcg PO ONETIME PRN miSOPROStoL [Cytotec] 25 mcg VAG ONETIME PRN Scalp Electrode [WOMSER] Per Unit Routine Medication Administration Instruction [OM.PC] Q3H Peripheral IV Insertion Adult [OM.PC] Routine Resuscitation Status Routine 04/06/20 20:20 RPR (SYPHILIS SERO) W/ RFLX [REF] Routine 04/06/20 23:51 miSOPROStoL [Cytotec] 25 mcg PO Q4H PRN 04/07/20 00:09 miSOPROStoL [Cytotec] 25 mcg VAG Q4H PRN - Plan Plan:: Admit A: presenting to labor and delivery for elective induction of labor at 40 2/7 weeks (LM: 04/04/20); A+, Rubella immune, GBS negative P: Anticipate ; epidural PRN; cytotect to pitocin; Dr. Calvin updated. Delivery A: viable male; progressed quickly from 8-9cm and an anterior lip to complete and ; RN delivered as this provider was headed from the nurse station; nuchal x1, reduced; baby to mom's abdomen for assessment; APGARs 8/9; weight pending; placenta delivered grossly intact, townsend, 3VC; EBL 150 mL; perineum intact; pitocin to IVF; mom and baby left in stable condition with nurse at bedside for assessment P: Routine plan of care; Dr. Calvin updated.
[2020-04-07] MEDS: Ibuprofen 800 MG Tab PO PRN (08:04)
[2020-04-08] MEDS: Ibuprofen 800 MG Tab PO PRN (02:14)
--- NOTE | 2020-04-08 11:45 | PCM.DCSUM1 ---
Discharge Summary - Hospital Course Free Text/Narrative:: Melissa is a 29 yo PPD1 S/P uncomplicated to term NBM. A pos, RI, GBS neg. Hemodynamically stable, afebrile. Patient is exclusively well, resting comfortably in bed with in bassinet. Patient reports she is eating, voiding, ambulating independently and without difficulty. Patient denies any problems or concerns at this time except mild intermittent uterine cramping relieved with Tylenol and Ibuprofen. Patient reports small to moderate rubra lochia with no clots. Patient verbalizes her readiness to be discharged home. Diagnosis: Stroke: No - Discharge Data Discharge Date: 04/08/20 Discharge Disposition: Home, Self-Care 01 Condition: Good - Referral to Home Health Primary Care Physician: PCP None - Discharge Diagnosis/Problem(s) (1) (spontaneous vaginal delivery) SNOMED Code(s): 685162821 ICD Code: O80 - ENCOUNTER FOR FULL-TERM UNCOMPLICATED DELIVERY Status: Acute Priority: High Current Visit: Yes (2) Lactating mother SNOMED Code(s): 719895861, 604756311 ICD Code: Z39.1 - ENCOUNTER FOR CARE AND EXAMINATION OF LACTATING MOTHER Status: Acute Priority: High Current Visit: Yes - Patient Instructions Diet: Usual Diet as Tolerated, Regular Diet as Tolerated, Drink 8-10+ Glasses/Day Activity: As Tolerated, No Strenuous Activities Driving: May Drive Today Driving, Other: Sitz baths as needed for perineal comfort Showering/Bathing: May Shower Notify Provider of: Fever, Increased Pain, Swelling and Redness, Drainage, Nausea and/or Vomiting - Discharge Plan *PRESCRIPTION DRUG MONITORING PROGRAM REVIEWED*: No *COPY OF PRESCRIPTION DRUG MONITORING REPORT IN PATIENT LINN: No Prescriptions/Med Rec: Ibuprofen [Motrin] 800 mg PO Q8H PRN #90 tablet PRN Reason: Pain Home Medications: Home Meds #103/Iron Fumarate/Fa [ ] 1 tab PO DAILY 12/08/17 [History] Ibuprofen [Motrin] 800 mg PO Q8H PRN #90 tablet 04/08/20 [Rx] Oxygen Therapy Mode: Room Air Referrals: [facility] [Outside] Vicki Kinsey, ELIZABETHM, BENEFITS COUNSELOR [Mid-] - 05/19/20 2:00 pm - Discharge Summary/Plan Comment DC Time >30 min.: No - General Info Date of Service: 04/08/20 Admission Dx/Problem (Free Text: Patient Status Order with Admit Dx/Problem 04/06/20 19:45 Patient Status [ADT] Routine Admission Diagnosis/Problem Admission Diagnosis/Problem 04/06/20 21:11 presenting to labor and delivery for elective induction of labor at 40 2/7 weeks (LM: 04/04/20); A+, Rubella immune, GBS negative Functional Status: Reports: Pain Controlled - Review of Systems General: Reports: No Symptoms HEENT: Reports: No Symptoms Pulmonary: Reports: No Symptoms Cardiovascular: Reports: No Symptoms Gastrointestinal: Reports: No Symptoms Genitourinary: Reports: No Symptoms Musculoskeletal: Reports: No Symptoms Skin: Reports: No Symptoms Neurological: Reports: No Symptoms Psychiatric: Reports: No Symptoms - Patient Data Vitals - Most Recent: Last Vital Signs Temp 96.5 F L 04/08/20 02:15 Pulse 78 04/08/20 02:15 Resp 18 04/08/20 02:15 BP 117/62 04/08/20 02:15 Pulse Ox 98 04/08/20 02:15 Weight - Most Recent: 245 lb Lab Results - Last 24 hrs: Laboratory Results - last 24 hr 04/08/20 Range/Units 05:25 Hgb 10.3 L (12.0-16.0) g/dL Hct 32.2 L (36.0-46.0) % Med Orders - Current: Current Medications Acetaminophen (Tylenol Extra Strength) 500 mg PO Q4H PRN PRN Reason: Pain Acetaminophen (Tylenol Extra Strength) 1,000 mg PO Q4H PRN PRN Reason: Pain Last Admin: 04/07/20 23:52 Dose: 1,000 mg Documented by: Benzocaine/Menthol (Dermoplast Pain Relief 20%-0.5% [place]) 78 gm TOP ASDIRECTED PRN PRN Reason: Perineal Comfort Measure Last Admin: 04/07/20 08:02 Dose: 1 canister Documented by: Bisacodyl (Dulcolax) 10 mg RECTAL ONETIME PRN PRN Reason: Constipation Docusate Sodium (Colace) 100 mg PO BID PRN PRN Reason: Constipation Emollient Ointment (Lansinoh Hpa) 0 gm TOP ASDIRECTED PRN PRN Reason: Sore Nipples Last Admin: 04/07/20 08:03 Dose: 7 g Documented by: Ibuprofen (Motrin) 400 mg PO Q4H PRN PRN Reason: Pain Ibuprofen (Motrin) 800 mg PO Q6H PRN PRN Reason: Pain Last Admin: 04/08/20 02:14 Dose: 800 mg Documented by: Oxycodone HCl (Oxycodone) 5 mg PO Q2H PRN PRN Reason: Pain Witch Ritu (Tucks) 1 pad TOP ASDIRECTED PRN PRN Reason: comfort care Last Admin: 04/07/20 08:02 Dose: 1 tub Documented by: Discontinued Medications Butorphanol Tartrate (Stadol) 1 mg IVPUSH Q1H PRN PRN Reason: Pain Last Admin: 04/07/20 06:32 Dose: 1 mg Documented by: Carboprost Tromethamine (Hemabate Ds) 250 mcg IM ASDIRECTED PRN PRN Reason: Post Hemorrhage Oxytocin/Sodium Chloride (Oxytocin 30 Unit/500 Ml-Ns) 30 unit in 500 mls @ 999 mls/hr IV TITRATE KAREN Last Infusion: 04/07/20 07:35 Dose: 300 mls/hr Documented by: Tranexamic Acid 1,000 mg/ (Sodium Chloride) 110 mls @ 660 mls/hr IV ONETIME PRN PRN Reason: Bleeding Oxytocin/Sodium Chloride (Oxytocin 30 Unit/500 Ml-Ns) 30 unit in 500 mls @ 2 mls/hr IV TITRATE KAREN; Protocol Last Titration: 04/07/20 07:15 Dose: 0 munits/min, 0 mls/hr Documented by: Lactated Ringer's (Ringers, Lactated) 1,000 mls @ 150 mls/hr IV ASDIRECTED KAREN Last Admin: 04/07/20 05:26 Dose: 150 mls/hr Documented by: Lidocaine HCl (Xylocaine 1%) 50 ml INJECT ONETIME PRN PRN Reason: Laceration repair Methylergonovine Maleate (Methergine) 0.2 mg IM ASDIRECTED PRN PRN Reason: Post Hemorrhage Misoprostol (Cytotec) 200 mcg PO ONETIME PRN PRN Reason: Post Hemorrhage Misoprostol (Cytotec) 25 mcg VAG ONETIME PRN PRN Reason: Cervical Ripening Misoprostol (Cytotec) 25 mcg VAG Q4H PRN PRN Reason: Cervical Ripening Last Admin: 04/06/20 20:32 Dose: 25 mcg Documented by: Misoprostol (Cytotec) 25 mcg PO Q4H PRN PRN Reason: Cervical Ripening Last Admin: 04/07/20 00:35 Dose: 25 mcg Documented by: Misoprostol (Cytotec) 25 mcg VAG Q4H PRN PRN Reason: Cervical Ripening Last Admin: 04/07/20 00:35 Dose: 25 mcg Documented by: Nalbuphine HCl (Nubain) 10 mg IVPUSH Q1H PRN PRN Reason: Pain (severe 7-10) Sodium Chloride (Saline Flush) 10 ml FLUSH ASDIRECTED PRN PRN Reason: Keep Vein Open Sodium Chloride (Saline Flush) 2.5 ml FLUSH ASDIRECTED PRN PRN Reason: Keep Vein Open Sodium Chloride (Normal Saline) 10 ml IV ASDIRECTED PRN PRN Reason: IV Use Sterile Water (Sterile Water For Irrigation) 1,000 ml IRR ASDIRECTED PRN PRN Reason: delivery Terbutaline Sulfate (Brethine) 0.25 mg SUBCUT ASDIRECTED PRN PRN Reason: Tacysystole - Exam General: Reports: Alert, Oriented, Cooperative, No Acute Distress HEENT: Reports: Pupils Equal, Pupils Reactive Neck: Reports: Supple Lungs: Reports: Clear to Auscultation, Normal Respiratory Effort Cardiovascular: Reports: Regular Rate, Regular Rhythm GI/Abdominal Exam: Normal Bowel Sounds, Soft, Non-Tender, No Organomegaly, No Distention (Female) Exam: Normal External Exam, Enlarged Uterus ( uterus), Vaginal Bleeding (Small to moderate rubra lochia) Rectal (Female) Exam: Deferred Back Exam: Reports: Normal Inspection, Full Range of Motion Extremities: Normal Inspection, Normal Range of Motion, Non-Tender, No Pedal Edema, Normal Capillary Refill Skin: Reports: Warm, Dry, Intact Neurological: Reports: No New Focal Deficit Psy/Mental Status: Reports: Alert, Normal Affect, Normal Mood
[2020-04-08 12:49] VITALS: BP 112/68; PULSE 83
== END 2020-04-08 18:15 | disposition home or self-care (01) | DRG 560 ==
LOC: MW.OB 07:14 → OBSVTOIN 04-07 07:14 → MW.OB 04-07 11:00
PROVIDERS: ADMIT Obstetrics & Gynecology; ATTEND Obstetrics & Gynecology
PROC: 10E0XZZ Delivery of Products of Conception, External Approach (ICD-10-PCS; principal; 2020-04-07)
PROC: 10907ZC Drainage of Amniotic Fluid, Therapeutic from Products of Conception, Via Natural or Artificial Opening (ICD-10-PCS; 2020-04-07)
PROC: 3E0P7VZ Introduction of Hormone into Female Reproductive, Via Natural or Artificial Opening (ICD-10-PCS; 2020-04-07)
DX: O69.81X0 Labor and delivery complicated by cord around neck, without compression, not applicable or unspecified (principal); Z3A.40 40 weeks gestation of pregnancy; Z37.0 Single live birth; Z20.828 Contact with and (suspected) exposure to other viral communicable diseases
CPT/HCPCS: 36415; 59025; 59409; 85014; 85018; 85027; 86592; 86850; 86900; 86901; A9270-GY; J0595; J2590; J7120; U0002

== ENCOUNTER 2025-05-03 14:55 | Inpatient (IN) | payer BC ==
[2025-05-03 16:12] LABS: APPEARANCE,URINE CLEAR; GLUCOSE,URINE NEGATIVE (NEGATIVE); OCCULT BLOOD,URINE TRACE-INTACT (NEGATIVE)
[2025-05-03] MEDS ORDERED: Water For Irrigation,Sterile 1,000 ML Container IRR PRN (16:17)
[2025-05-03] MEDS ORDERED: Carboprost Tromethamine 250 MCG/1 mL Vial IM PRN (16:17)
[2025-05-03] MEDS ORDERED: Butorphanol 1 MG/ML SDV IVPUSH PRN (16:17)
[2025-05-03] MEDS ORDERED: Sodium Chloride 0.9% 2.5 ML Syringe FLUSH PRN (16:17)
[2025-05-03] MEDS ORDERED: Sodium Chloride 0.9% 10 ML Syringe FLUSH PRN (16:17)
[2025-05-03 16:23] LABS: EPITHELIAL CELLS,URINE FEW (NONE-FEW)
[2025-05-03] MEDS ORDERED: Oxytocin/0.9 % Sodium Chloride 30 UNIT/500 ML BAG IV SCH (16:30)
[2025-05-03 16:40] LABS: MEAN PLATELET VOLUME 9.6 fL (9.4-12.3); NRBC ABSOLUTE 0.00 K/uL (0.00-0.02); NRBC PERCENT 0.0 /100WBC (0.0-0.2); PLATELET COUNT,PLT 261 K/uL (150-400); RED BLOOD CELL COUNT 4.03 M/uL (4.10-5.30); WHITE BLOOD CELL COUNT,WBC 11.61 K/uL (3.9-11.3)
[2025-05-03] MEDS ORDERED: ePHEDrine 50 MG/ML SDV IVPUSH PRN (18:01)
[2025-05-03] MEDS ORDERED: dexmedeTOMIDine HCl 200 MCG/2 ML SDV EPIDUR SCH (18:15)
[2025-05-03] MEDS ORDERED: Terbutaline 1 MG/ML SDV SUBCUT PRN (19:36)
[2025-05-03] MEDS ORDERED: Oxytocin 10 Units/1 ML SDV IM PRN (19:48)
[2025-05-03] MEDS: Oxytocin/0.9 % Sodium Chloride 30 UNIT/500 ML BAG IV SCH (20:28)
[2025-05-03] MEDS: Lactated Ringers 1,000 ML IV SCH (20:30)
[2025-05-03] MEDS: Pantoprazole 40 MG in Sodium Chloride 0.9% 20 ML IVPUSH ONE (21:49)
[2025-05-03] MEDS: Ropivacaine HCl/PF 400 MG in Premix Bag 1 BAG EPIDUR SCH (22:25)
[2025-05-03] MEDS ORDERED: Lanolin 100% Cream 7 GM Tube TOP PRN (23:03)
[2025-05-04] MEDS: Ondansetron 4 MG/2 ML SDV IVPUSH PRN (00:16)
[2025-05-04 01:35] LABS: PH,UMBILICAL ARTERIAL 7.3 (7.18-7.38); PH,UMBILICAL VENOUS 7.37 (7.25-7.45)
[2025-05-04] MEDS: Witch Hazel Medicated Pads 40/Jar TOP PRN (04:24)
[2025-05-04 05:52] LABS: MEAN PLATELET VOLUME 9.5 fL (9.4-12.3); NRBC ABSOLUTE 0.00 K/uL (0.00-0.02); NRBC PERCENT 0.0 /100WBC (0.0-0.2); PLATELET COUNT,PLT 242 K/uL (150-400); RED BLOOD CELL COUNT 3.72 M/uL (4.10-5.30); WHITE BLOOD CELL COUNT,WBC 15.41 K/uL (3.9-11.3)
[2025-05-04] MEDS: Prenatal Multivitamin with Calcium/Folic Acid/Iron Tab PO SCH (08:28)
[2025-05-06 15:23] VITALS: BP 116/74; PULSE 84
== END 2025-05-06 15:38 | disposition home or self-care (01) | DRG 560 ==
LOC: MW.OBCHECK 14:55 → MW.OB 14:57 → MW.OBCHECK 16:38 → MW.OB 16:40 → OBSVTOIN 05-04 00:26 → MW.OB 05-04 04:23
PROVIDERS: ADMIT Obstetrics & Gynecology Obstetrics; ATTEND Obstetrics & Gynecology
PROC: 10E0XZZ Delivery of Products of Conception, External Approach (ICD-10-PCS; principal; 2025-05-04)
PROC: 3E0R3BZ Introduction of Anesthetic Agent into Spinal Canal, Percutaneous Approach (ICD-10-PCS; 2025-05-04)
PROC: 0HQ9XZZ Repair Perineum Skin, External Approach (ICD-10-PCS; 2025-05-04)
DX: O98.12 Syphilis complicating childbirth (principal); O99.214 Obesity complicating childbirth; E66.01 Morbid (severe) obesity due to excess calories; O70.0 First degree perineal laceration during delivery; O69.1XX0 Labor and delivery complicated by cord around neck, with compression, not applicable or unspecified; Z3A.39 39 weeks gestation of pregnancy; Z37.0 Single live birth; Z88.1 Allergy status to other antibiotic agents; Z88.8 Allergy status to other drugs, medicaments and biological substances; Z79.899 Other long term (current) drug therapy
CPT/HCPCS: 36415; 51702; 59025; 59409; 81001; 82803; 84112; 85027; 86592; 86593; 86780; 86850; 86900; 86901; A9270-GY; J2371; J2405; J2470; J2590; J2795; J7120